=== PATIENT | female | born 1965 | race Caucasian/White ===

== ENCOUNTER → 2023-10-24 07:24 | Outpatient (REF) | payer BC, SELFPAY ==
[2023-10-24 08:52] LABS: % Basophils 0.6 % (0-2); % Eosinophils 0.7 % (0-6); % Immature Granulocytes 0.2 % (0-0.5); % Lymphocytes 22.3 % (20.5-51.1); % Monocytes 6.5 % (1.7-9.3); % Neutrophils 69.7 % (42.2-75.2); Absolute Lymphocytes 1.2 10^3/uL (1.2-3.4); Absolute Monocytes 0.4 10^3/uL (0.1-0.6); Absolute Neutrophils 3.8 10^3/uL (1.4-6.5); Hematocrit 39.2 % (37.0-47.0); Hemoglobin 13.1 g/dL (12.0-16.0); Mean Corp Hgb Conc. 33.4 g/dL (33.0-37.0); Mean Corpuscular Hgb 31.5 pg (27.0-31.0); Mean Corpuscular Volume 94.2 fL (81.0-99.0); Nucleated Red Blood Cells % 0 %; Platelet Count 289 10^3/uL (130-400); Red Blood Cell Count 4.16 10^6/uL (4.20-5.40); Red Cell Dist. Width 13.3 % (11.5-14.5); White Blood Cell Count 5.4 10^3/uL (4.8-10.8)
[2023-10-24 09:09] LABS: ALT (SGPT) 17 U/L (0-35); AST (SGOT) 25 U/L (14-36); Albumin 4.2 g/dl (3.5-5.0); Alkaline Phosphatase 98 U/L (38-126); Blood Urea Nitrogen 16 mg/dl (7-17); Calcium 9.5 mg/dl (8.4-10.2); Carbon Dioxide 29 mmol/L (22-30); Chloride 103 mmol/L (98-107); Glucose 86 mg/dl (70-99); HDL Cholesterol 83 mg/dl; LDL Cholesterol, Calculated 87 mg/dl; Potassium 4.9 mmol/L (3.5-5.1); Sodium 138 mmol/L (135-145); Total Bilirubin 0.7 mg/dl (0.2-1.3); Total Cholesterol 183 mg/dl (50-199); Total Protein 6.8 g/dl (6.3-8.2); Triglyceride 66 mg/dl (10-149); Very Low Density Lipoprotein 13 mg/dl (0-30); eGFR > 60.00
== END ==
LOC: REG 07:24
PROVIDERS: ATTENDING PHYSICIAN Internal Medicine Infectious Disease; FAMILY PHYSICIAN Family Medicine
DX: Z00.00 Encounter for general adult medical examination without abnormal findings (principal)
CPT/HCPCS: 36415; 80053; 80061; 85025

== ENCOUNTER → 2025-02-04 07:36 | Outpatient (REF) | payer BC, SELFPAY ==
[2025-02-04 08:43] LABS: Hematocrit 40.8 % (37.0-47.0); Hemoglobin 13.2 g/dL (12.0-16.0); Mean Corp Hgb Conc. 32.4 g/dL (33.0-37.0); Mean Corpuscular Volume 96.2 fL (81.0-99.0); Nucleated Red Blood Cells % 0 %; Platelet Count 249 10^3/uL (130-400); Red Cell Dist. Width 13.2 % (11.5-14.5)
[2025-02-04 09:22] LABS: ALT (SGPT) 17 U/L (0-35); AST (SGOT) 24 U/L (14-36); Albumin 4.3 g/dl (3.5-5.0); Alkaline Phosphatase 89 U/L (38-126); Blood Urea Nitrogen 11 mg/dl (7-17); Calcium 9.0 mg/dl (8.4-10.2); Carbon Dioxide 30 mmol/L (22-30); Chloride 103 mmol/L (98-107); Glucose 86 mg/dl (70-99); HDL Cholesterol 78 mg/dl; LDL Cholesterol, Calculated 82 mg/dl; Potassium 4.8 mmol/L (3.5-5.1); Sodium 139 mmol/L (135-145); Total Protein 7.1 g/dl (6.3-8.2); Very Low Density Lipoprotein 16 mg/dl (0-30); eGFR > 60.00
== END ==
LOC: REG 07:36
PROVIDERS: ATTENDING PHYSICIAN Internal Medicine Infectious Disease; FAMILY PHYSICIAN Family Medicine
DX: Z00.00 Encounter for general adult medical examination without abnormal findings (principal)
CPT/HCPCS: 36415; 80053; 80061; 85025

== ENCOUNTER → 2025-03-15 13:46 | Outpatient (REF) | payer BC, SELFPAY | LOC: WDC 13:46 | PROVIDERS: ATTENDING PHYSICIAN Internal Medicine Infectious Disease; FAMILY PHYSICIAN Family Medicine | DX: Z12.31 Encounter for screening mammogram for malignant neoplasm of breast (principal) | CPT/HCPCS: 77063; 77067 ==